=== PATIENT | male | born 1960 | race African-American/Black ===

== ENCOUNTER 2016-07-10 17:49 | Inpatient (IN) | payer OTHER ==
--- NOTE | ~2016-07-10 | PN ---
Unit #: [id number] #: [id number] Patient: JEY SMITH [id number] [facility] [address] [place] [address] [id number] MR#: [id number] NAME: JEY SMITH ROOM: [facility] Age: 56 Sex: M Admission Date: 07/10/2016 : 1960 Attending Physician: Lilly Gregorio M.D. Admitting Physician: Lilly Gregorio M.D. Primary Care Physician: Anthony THOMSON PROGRESS NOTES DATE 07/13/2016 DISCUSSION Mr. Jey Smith is a 56-year-old, male with mood disorder who was seen today and chart was reviewed and case was discussed with the staff. He has been anxious, withdrawn and rather seclusive to himself. Meanwhile, he has been cooperative with treatment recommendations. He has been taking the medication and tolerating them fairly well with no reported side effects. MENTAL STATUS EXAM Middle-aged male who was casually dressed with fair personal hygiene, appears to be in no acute distress or discomfort. He was awake and alert on interaction with intact orientation. His mood was anxious with congruent affect. He denies any suicidal or homicidal ideation. His insight and judgement remains slightly impaired. TREATMENT PLAN 1. We will continue him on his current medications and treatment protocol. We will monitor his response to the medication and make further adjustments as needed. 2. We will continue to follow up. Dictated by... Jj Huitron/lety TD: 07/16/2016 21:23 JOB #: [id number] Unit #: [id number] #: [id number] Patient: JEY SMITH PROGRESS NOTES Page 1 of 1 X Lilly Gregorio MD PROGRESS NOTE
--- NOTE | ~2016-07-10 | A ---
[facility] Nutrition Therapy DATE: 07/21/16 Patient: JEY TRUJILLO Physician: AFF Address: HOMELESS NO PERMANENT ADDRESS Room/Bed: [address], Zip: [place] [address] Admit Date: 07/10/16 Date of : 56 Height: 5 9 Weight: 232 [phone] NUTRITIONAL ASSESSMENT: REASON: LENGTH OF STAY PATIENT ADMITTED FOR DEPRESSION, SI PMH: HTN, OBESITY Anthropometrics: HT: 5'9", WT: 233, BMI: 34.4 Labs: 07/11/16- GLU: 130 Meds: SEROQUEL, TRAZODONE, ZOLOFT Assessment: CHART REVIEWED, EVENTS NOTED. PATIENT IS A 56 Y/O MALE ADMITTED FOR DEPRESSION AND SI. PATIENT IS CURRENTLY UNEMPLOYED, HOMELESS, HAS A HX OF ETOH ABUSE, AND DENIES ANY CURRENT SUBSTANCE USE. PATIENT HAS A HX OF INPATIENT PSYCH HOSPITALIZATION. PER NEEDS ASSESSMENT, PATIENT STATED A FAIR APPETITE WITH A 10# WEIGHT LOSS OVER LAST SEVERAL MONTHS AND HE HAD NOT BEEN SLEEPING. NURSING REPORTS CONSISTENTLY GOOD PO INTAKES. CURRENT PSYCH MEDS MAY CAUSE WEIGHT AND APPETITE FLUCTUATIONS. THERE ARE NO SKIN OR GI ISSUES NOTED ATT. PATIENT IS ON A REGULAR DIET. Dx: NO NUTRITION DX Intervention: REGULAR DIET, MEDS PER MD, PSYCH Monitoring, Evaluation and Goals: 1. ADEQUATE PO INTAKES >50% OF MEALS 2. PREVENT, CORRECT MICRO/MACRO NUTRIENT DEFICIENCIES MONITOR: WEIGHTS, LABS, PO/FLUID INTAKES Recommendations: 1. CONTINUE REGULAR DIET TOLERATED 2. ENCOURAGE ADEQUATE PO AND FLUID INTAKES RD TO F/U PER PROTOCOL AND PRN R/T PATIENT NOT AT NUTRITIONAL RISK ATT Respectfully, [facility] Nutrition Therapy DATE: 07/21/16 Patient: JEY TRUJILLO Physician: JUVENTINOF Address: HOMELESS NO PERMANENT ADDRESS Room/Bed: [address], Zip: [place] [address] Admit Date: 07/10/16 Date of : 56 Height: 5 9 Weight: 232 [phone] NADIA MURRAY, RD, LD [facility] cc: client file
--- NOTE | ~2016-07-10 | HP ---
Unit #: [id number] #: [id number] Patient: JEY TRUJILLO [id number] [place] [address] [id number] MR#: [id number] NAME: JEY TRUJILLO ROOM: P254 Age: 56 Sex: M Admission Date: 07/10/2016 : 1960 Attending Physician: Lilly Gregorio M.D. Admitting Physician: Lilly Gregorio M.D. Primary Care Physician: Anthony Vogel HISTORY AND PHYSICAL HISTORY OF PRESENT ILLNESS Jey is a 56 year old admitted to [address] [place] [address] with depression and verbalizing wanting to hurt himself. PAST MEDICAL HISTORY 1. Obesity. 2. High blood pressure. PAST SURGICAL HISTORY 1. Bilateral knees. 2. Right shoulder. ALLERGIES Penicillin. SOCIAL HISTORY He denies cigarettes, alcohol and illicit drug use. FAMILY HISTORY Medically noncontributory. REVIEW OF SYSTEMS CONSTITUTIONAL: No fever or chills. HEENT: Denies any sore throat, ear pain or runny nose. CARDIOVASCULAR: Denies chest pain, irregular heart rhythm or palpitations. CHEST: Denies shortness of breath or cough. No hemoptysis. GASTROINTESTINAL: Denies nausea, vomiting, diarrhea or chronic constipation. ENDOCRINE: Denies history of increased thirst or urination. No recent significant weight loss or gain. GENITOURINARY: Denies dysuria, frequency, or hematuria. SKIN: Denies any rashes. HEMATOLOGIC: Denies history of increased bleeding or bruising. MUSCULOSKELETAL: Denies any hot, swollen joints. No generalized muscle pain. NEUROLOGIC: Denies problems with vision or speech. No frequent, severe headaches. No numbness, tingling or weakness in any extremities. Denies loss of bladder or bowel control. CURRENT MEDICATIONS 1. Zoloft 100 mg daily. 2. Milk of Magnesia p.r.n. 3. Maalox p.r.n. Unit #: [id number] #: [id number] Patient: JEY TRUJILLO 4. Tylenol p.r.n. 5. Ambien 10 mg q.h.s. 6. Lotensin 40 mg daily. 7. Norvasc 10 mg daily. PHYSICAL EXAMINATION GENERAL: Alert, obese, in no apparent distress. VITAL SIGNS: Blood pressure 174/100, heart rate 80, respirations 16, temperature 98.6. WEIGHT: 233. HEIGHT: 5 feet 9 inches. SKIN: Warm and dry without rash or lesion. HEENT: Normocephalic. TMs not viewed. Oral and nasal passages clear. Conjunctivae clear. PERRLA. EOMs intact. NECK: Supple without lymphadenopathy or thyromegaly. HEART: Regular rate and rhythm without murmur. LUNGS: Clear. ABDOMEN: Soft, nontender. : Not done. EXTREMITIES: No evidence of cyanosis, clubbing or edema. Moves all without focal deficit. NEUROLOGICAL: Grossly within normal limits. Cranial Nerves: II: Visual chung are intact. III, IV AND : Extraocular movements are intact. Pupils are equal, round and reactive to light. V: Facial sensation is grossly normal. VII: Facial movements and expression are normal. VIII: Auditory acuity grossly intact. IX, X: Uvula is midline. Phonation is normal. XI: Patient shrugs shoulders and turns head normally. XII: Tongue protrudes in the midline. Sensory and Motor Function: Sensory and motor sensation is grossly normal. Motor: moves all extremities well. Coordination: Gait is normal. Deep Tendon Reflexes: Intact. IMPRESSION Psychiatric admission. RECOMMENDATIONS PSYCHIATRIC: Per psychiatrist. MEDICAL: See no contraindications to participate in facility's activities. MEDICAL PROGNOSIS Good. MEDICAL CONDITION Stable. Dictated by... Kusum Jones P.A.-C. for Jj Francis/mir TD: 07/11/2016 16:17 JOB #: [id number] Unit #: [id number] #: [id number] Patient: JEY TRUJILLO HISTORY AND PHYSICAL Page 1 of 1 X Kusum Jones HISTORY AND PHYSICAL
--- NOTE | ~2016-07-10 | DS ---
Unit #: [id number] #: [id number] Patient: JEY SMITH [id number] [facility] [place] [address] [id number] I MR#: [id number] NAME: JEY SMITH [facility]OM: [facility] Age: 56 Sex: M Admission Date: 07/10/2016 : 1960 Discharge Date: Attending Physician: Lilly Gregorio M.D. Primary Care Physician: Anthony Vogel DISCHARGE SUMMARY IDENTIFYING DATA Mr. Smith is a 56-year-old single male, who is a resident of [place], [place] and was self-referred to the hospital on a voluntary basis. DISCHARGE DIAGNOSES Psychiatric: Major depressive disorder, recurrent, moderate, without psychotic features. Medical: Hypertension. Stressors: Moderate psychosocial stressors. HISTORY OF PRESENT ILLNESS Please see initial psychiatric evaluation for details. PAST PSYCHIATRIC HISTORY Please see initial psychiatric evaluation for details. PAST MEDICAL HISTORY Please see initial psychiatric evaluation for details. HOSPITAL COURSE The patient was admitted to the adult psychiatric unit at [facility] and was oriented to the hospital environment. Routine p.r.n. medications were initiated, and he was started back on his home medication, and Zoloft and Seroquel were initiated to help with depression and he was closely monitored. He was seen to be anxious, withdrawn, exhibiting some significant symptoms of depression and was very seclusive to himself and was not interacting or socializing very much. He was polite and pleasant and cooperative with treatment recommendation and was not showing any agitation or aggression, and though he was taking the medications, he was not really showing a therapeutic response and as such, medications were gradually titrated up and Zoloft was increased to 200 mg and Seroquel was increased to 300 mg and he started showing therapeutic response, and as such, it was decided that he will be discharged home and will continue treatment on an outpatient basis. DISCHARGE MEDICATIONS Lotensin 40 mg a day for hypertension, Zoloft 200 mg a day for depression, Seroquel 300 mg at bedtime for depression. DISCHARGE CONDITION Stable. PROGNOSIS Unit #: [id number] #: [id number] Patient: JEY SMITH. Dictated by... Lilly Gregorio M.D. IAA/modl TD: 07/24/2016 07:14 JOB #: [id number] DISCHARGE SUMMARY Page 1 of 1 X Lilly Gregorio MD DISCHARGE SUMMARY
--- NOTE | ~2016-07-10 | PN ---
Unit #: [id number] #: [id number] Patient: JEY SMITH [id number] [facility] [address] [place] [address] [id number] MR#: [id number] NAME: JEY SMITH ROOM: P254 Age: 56 Sex: M Admission Date: 07/10/2016 : 1960 Attending Physician: Lilly Gregorio M.D. Admitting Physician: Lilly Gregorio M.D. Primary Care Physician: Anthony THOMSON PROGRESS NOTES DATE OF SERVICE: 07/17/2016 SUBJECTIVE Mr. Smith is a 56-year-old male, who was seen today and chart was reviewed, and case was discussed with the staff. He has been anxious, withdrawn, though has not shown any agitation, irritability, or behavioral problems, and has been cooperative with treatment recommendations, though has been reported persistent depressive symptoms . MENTAL STATUS EXAMINATION Middle-aged male, who was casually dressed with fair personal hygiene, appears to be in no acute distress or discomfort. He was awake and alert on interaction with intact orientation. His mood was anxious and depressed with a congruent affect. His speech was . TREATMENT PLAN 1. We will continue him on his current medications and treatment protocol. We will monitor his response to the medications and make further adjustments as needed. 2. We will continue to follow up. Dictated by... Jj Huitron/joaquín TD: 07/18/2016 01:54 JOB #: [id number] [facility] PROGRESS NOTES Page 1 of 1 X Lilly Gregorio MD PROGRESS NOTE
--- NOTE | ~2016-07-10 | PN ---
Unit #: [id number] #: [id number] Patient: JEY SMITH [id number] [facility] [address] [place] [address] [id number] I MR#: [id number] NAME: JEY SMITH ROOM: P254 Age: 56 Sex: M Admission Date: 07/10/2016 : 1960 Attending Physician: Lilly Gregorio M.D. Admitting Physician: Lilly Gregorio M.D. Primary Care Physician: Anthony THOMSON PROGRESS NOTES DATE July 20, 2016 DISCUSSION Mr. Smith is a 56-year-old male, who was seen today and chart was reviewed and the case was discussed with the staff. He was lying in his bed and reports and reporting that he has been up all night long and anxious and depressed, and still having suicidal thoughts. Meanwhile, he has been taking the medications and tolerating them fairly well but has not shown been able to show any therapeutic response. MENTAL STATUS EXAMINATION Middle-aged male, who was casually dressed with fair personal hygiene and appears to be in no acute distress or discomfort. He was awake and alert on interaction with intact orientation. His mood is anxious with a congruent affect. He reports having suicidal ideation but denies any homicidal ideation. His insight and judgment remain slightly impaired. TREATMENT PLAN We will continue him on his current medications and treatment protocol, and will monitor his response, and make further adjustments as needed. We will be maintaining Zoloft at 200 mg a day, and increase the Seroquel to 300 mg at bedtime. Dictated by... Jj Huitron/phuc TD: 07/21/2016 05:00 JOB #: [id number] Unit #: [id number] #: [id number] Patient: JEY SMITH PROGRESS NOTES Page 1 of 1 X Lilly Gregorio MD PROGRESS NOTE
--- NOTE | ~2016-07-10 | PN ---
Unit #: [id number] #: [id number] Patient: JEY SMITH [id number] [facility] [address] [place] [address] [id number] I MR#: [id number] NAME: JEY SMITH ROOM: P254 Age: 56 Sex: M Admission Date: 07/10/2016 : 1960 Attending Physician: Lilly Gregorio M.D. Admitting Physician: Lilly Gregorio M.D. Primary Care Physician: Anthony THOMSON PROGRESS NOTES DATE 07/21/2016 DISCUSSION Mr. Smith is a 56-year-old male who was seen today and chart was reviewed and case was discussed with the staff. He remains anxious, withdrawn and rather seclusive to himself. Meanwhile, he has been cooperative with treatment recommendations and has been taking medications and tolerating them fairly well with no reported side effects. MENTAL STATUS EXAMINATION Middle-aged male who was casually dressed with fair personal hygiene and appears to be in no acute distress or discomfort. He was awake and alert on interaction with intact orientation. His mood was anxious and depressed with congruent affect. His speech is slow and goal-directed. He denies any suicidal or homicidal ideation and also denies any auditory or visual hallucinations. His insight and judgement remains slightly impaired. TREATMENT PLAN 1. Will continue on his current medications and treatment protocol. Will monitor response to the medications and make further adjustments as needed. 2. Will continue to follow up. Dictated by... Jj Huitron/mir TD: 07/21/2016 21:20 JOB #: [id number] Unit #: [id number] #: [id number] Patient: JEY SMITH PROGRESS NOTES Page 1 of 1 X Lilly Gregorio MD PROGRESS NOTE
--- NOTE | ~2016-07-10 | PA ---
Unit #: [id number] #: [id number] [facility] [id number] [facility] [address] [place] [address] [id number] I MR#: [id number] NAME: JEY SMITH ROOM: P254 Age: 56 Sex: M Admission Date: 07/10/2016 : 1960 Date of Assessment: 07/10/2016 Attending Physician: Lilly Gregorio M.D. Admitting Physician: Lilly Gregorio M.D. Primary Care Physician: Anthony Vogel PSYCHIATRIC ASSESSMENT IDENTIFYING DATA Mr. Smith is a 56-year-old, single, male, who is a resident of [place], [place], was self-referred to the hospital on a voluntary basis. CHIEF COMPLAINT "Because I'm depressed and suicidal." HISTORY OF PRESENT ILLNESS Mr. Smith is a 56-year-old male, who was self-referred to the hospital today and he came today because he is depressed and suicidal and that he has been feeling this way for a few months and if he left here today, he would not be safe and reports that he has medications for depression that he tries to take on daily basis and reports increasing depression, anxiety, depressed sleep and appetite, poor energy level, psychomotor retardation, feelings of hopelessness and helplessness, and suicidal ideation. SUBSTANCE ABUSE HISTORY The patient reports history of alcohol abuse in the past, but denies any current abuse and reports that he has not had any in the last 2 years. PAST PSYCHIATRIC HISTORY The patient has had a [facility] at [facility] and has been diagnosed and treated for mood disorder. Review of the medical records indicate that he is currently supposed to be on Zoloft and Seroquel, though it is not clear if he has been compliant with the medications and does not appear to be showing a therapeutic response to the medications. PAST MEDICAL HISTORY The patient's medical history is significant for hypertension. ALLERGIES Penicillin. PERSONAL AND SOCIAL HISTORY A 56-year-old male, who reports that he is single, unemployed, and homeless and has poor social support system. MENTAL STATUS EXAMINATION Middle-aged male, who was casually dressed with fair Unit #: [id number] #: [id number] Patient: JEY SMITH personal hygiene, appears to be in no acute distress or discomfort. He was awake and alert on interaction with intact orientation to time, place, and person. His mood was anxious and depressed with a congruent affect. His speech was slow and goal directed. His thought processes were disorganized with some looseness of associations and suicidal ideations. His insight and judgment remain significantly impaired. DIAGNOSTIC IMPRESSION Psychiatric: Major depressive disorder, recurrent, moderate, without psychotic features. Medical: Hypertension. Stressors: Moderate psychosocial stressors. TREATMENT PLAN 1. The patient has presented with a history of substance abuse and mood disorder, and has been decompensating and will need inpatient hospitalization for detoxification, safety, and stabilization. We will start him back on his home medications. We will adjust the medications and monitor response. 2. Supportive therapy was provided to the patient. 3. Safe, structured, and nourishing environment will be provided. ESTIMATED LENGTH OF STAY 5 to 7 days. ABILITY TO HELP SELF Limited. WILLINGNESS TO HELP SELF The patient appears to be willing to help self. STRENGTHS 1. Communicative. 2. Cooperative. PROBLEMS 1. Chronic dysphoric symptoms. 2. Chronic chemical dependency. 3. Poor social support system. DISCHARGE CRITERIA This will be contingent upon the patient's ability to show resolution of his depression and anxiety, and his ability to stay safe to himself, particularly after discharge from the hospital. Dictated by... Jj Huitron/joaquín TD: 07/11/2016 07:10 JOB #: [id number] Unit #: [id number] #: [id number] Patient: JEY SMITH PSYCHIATRIC ASSESSMENT Page 1 of 1 X Lilly Gregorio MD PSYCHIATRIC ASSESSMENT
--- NOTE | ~2016-07-10 | PN ---
Unit #: [id number] #: [id number] Patient: JEY SMITH [id number] [facility] [address] [place] [address] [id number] MR#: [id number] NAME: JEY SMITH ROOM: [facility] Age: 56 Sex: M Admission Date: 07/10/2016 : 1960 Attending Physician: Lilly Gregorio M.D. Admitting Physician: Lilly Gregorio M.D. Primary Care Physician: Anthony THOMSON PROGRESS NOTES DATE 07/15/2016 DISCUSSION Jey Smith is a 56-year-old male reported still having suicidal ideation, trouble sleeping, sad depressed feeling of hopelessness, worthlessness. The patient's vital signs 98.3, 79, 159/96. The patient denied any other complaints. Complete review of systems unremarkable. MENTAL STATUS EXAMINATION General appearance, the patient dressed casually in hospital attire. Attention span and concentration poor. Oriented to time, place and person. Mood and affect was sad, dysphoric, flat. Speech monotone. Thought process concrete. The patient denied any thoughts of harming others but having suicidal ideation, hopelessness, worthlessness. Recent and remote memory poor. Insight and judgement poor. DIAGNOSES Mood disorder NOS ASSESSMENT/PLAN Advise at this time to continue with current medication and therapeutic protocol. If needed consider further adjustment of medication. Advise trazodone 75 mg at bedtime for sleep. Dictated by... Jj Dill/lety TD: 07/18/2016 03:49 JOB #: [id number] Unit #: [id number] #: [id number] Patient: JEY SMITH PROGRESS NOTES Page 1 of 1 X Godfrey Burris MD PROGRESS NOTE
--- NOTE | ~2016-07-10 | PN ---
Unit #: [id number] #: [id number] Patient: JEY SMITH [id number] [facility] [address] [place] [address] [id number] MR#: [id number] NAME: JEY SMITH ROOM: [facility] Age: 56 Sex: M Admission Date: 07/10/2016 : 1960 Attending Physician: Lilly Gregorio M.D. Admitting Physician: Lilly Gregorio M.D. Primary Care Physician: Anthony JEFFRIES NOTES DATE OF SERVICE 07/19/2016 DISCUSSION Mr. Smith is a 56-year-old male who was seen today. Chart was reviewed and case was discussed with the staff. He remains anxious, withdrawn, depressed, and rather seclusive to himself. Meanwhile, he has been cooperative with the treatment recommendations and has been taking the medications and tolerating them fairly well with no reported side effects. MENTAL STATUS EXAMINATION Middle-aged male who is casually dressed with fair personal hygiene, appears to be in no acute distress or discomfort. He was awake and alert on interaction with intact orientation. His mood is anxious and depressed with congruent affect. Speech is slow and restricted in content. He reports having suicidal ideations but denies any homicidal ideation. His insight and judgment remain slightly impaired. TREATMENT PLAN 1. We will continue him on his current medications and treatment protocol. We will monitor his response to the medications and make further adjustments as needed. 2. We will continue to follow up. Dictated by... Jj Huitron/josephine TD: 07/20/2016 07:21 JOB #: [id number] Unit #: [id number] #: [id number] Patient: JEY SMITH PROGRESS NOTES Page 1 of 1 X Lilly Gregorio MD PROGRESS NOTE
--- NOTE | ~2016-07-10 | PN ---
Unit #: [id number] #: [id number] Patient: JEY SMITH [id number] [facility] [address] [place] [address] [id number] I MR#: [id number] NAME: JEY SMITH ROOM: P254 Age: 56 Sex: M Admission Date: 07/10/2016 : 1960 Attending Physician: Lilly Gregorio M.D. Admitting Physician: Lilly Gregorio M.D. Primary Care Physician: Anthony THOMSON PROGRESS NOTES DATE July 12, 2016 DISCUSSION Mr. Smith was seen today and chart was reviewed. His case was discussed with the staff. He has been anxious, withdrawn, and rather seclusive to himself. Meanwhile, he has been exhibiting significant depressive symptoms and has been very seclusive to himself (1) minimal interaction. He has been, however, taking medications and tolerating them fairly well with no reported side effects. MENTAL STATUS EXAMINATION Middle age, -Indian male who was casually dressed with a fair personal hygiene and appears to be in no acute distress or discomfort. He was awake and alert on interaction with intact orientation. His mood is anxious with a congruent affect. Speech is slow and restricted in content. His thought processes are disorganized with some looseness of association and suicidal ideation. His insight and judgement remain significantly impaired. TREATMENT PLAN 1. Continue on his current treatment protocol. Will monitor his response to the medications and make further adjustments as needed. 2. Will continue to follow up. Dictated by... Jj Huitron/renee TD: 07/14/2016 08:15 JOB #: [id number] Unit #: [id number] #: [id number] Patient: JEY SMIHT PROGRESS NOTES Page 1 of 1 X Lilly Gregorio MD PROGRESS NOTE
--- NOTE | ~2016-07-10 | PN ---
Unit #: [id number] #: [id number] Patient: JEY SMITH [id number] [facility] [address] [place] [address] [id number] I MR#: [id number] NAME: JEY SMITH ROOM: P254 Age: 56 Sex: M Admission Date: 07/10/2016 : 1960 Attending Physician: Lilly Gregorio M.D. Admitting Physician: Lilly Gregorio M.D. Primary Care Physician: Anthony JEFFRIES NOTES DATE OF SERVICE: 07/18/2016 SUBJECTIVE Mr. Smith is a 56-year-old male with mood disorder, who was seen today and chart was reviewed, and case was discussed with the staff. He has been anxious, withdrawn, depressed, and rather seclusive to himself, though he has been cooperative with treatment recommendations and taking the medications and tolerating them fairly well with no reported side effects. MENTAL STATUS EXAMINATION Middle-aged male, who was casually dressed with fair personal hygiene, appears to be in no acute distress or discomfort. He was awake and alert on interaction with intact orientation. His mood was anxious and depressed with a congruent affect. His speech was slow and restricted in content. His thought processes were disorganized with looseness of association and suicidal ideations. His insight and judgment remain significantly impaired. TREATMENT PLAN 1. We will continue his current medications and treatment protocol. We will monitor his response to medications and make further adjustments as needed. 2. We will continue to follow up. Dictated by... Jj Huitron/joaquín TD: 07/18/2016 23:55 JOB #: [id number] Unit #: [id number] #: [id number] Patient: JEY SMITH PROGRESS NOTES Page 1 of 1 X Lilly Gregorio MD PROGRESS NOTE
--- NOTE | ~2016-07-10 | PN ---
Unit #: [id number] #: [id number] Patient: JEY SMITH [id number] [facility] [address] [place] [address] [id number] MR#: [id number] NAME: JEY SMITH ROOM: P254 Age: 56 Sex: M Admission Date: 07/10/2016 : 1960 Attending Physician: Lilly Gregorio M.D. Admitting Physician: Lilly Gregorio M.D. Primary Care Physician: Anthony JEFFRIES NOTES DATE OF SERVICE: 07/14/2016 SUBJECTIVE Mr. Smith is a 56-year-old male, who was seen today and chart was reviewed and the case was discussed with the staff. He has been anxious, withdrawn, depressed, and rather seclusive to himself and reports not feeling good and reports that his depression is not getting any better and also reports some persistent suicidal thoughts and lack of sleep. Meanwhile, he has been coming to therapy groups and has been participating. MENTAL STATUS EXAMINATION Middle-aged male, who was casually dressed with a fair personal hygiene and appears to be in no acute distress or discomfort. He was awake and alert on interaction with intact orientation. His mood was anxious and depressed with a congruent affect. He reports having suicidal ideations, but denies any homicidal ideations. His insight and judgment remain significantly impaired. TREATMENT PLAN 1. We will adjust his psychotropic medications and increase his Seroquel to 200 mg at bedtime and we will also increase his Zoloft to 200 mg a day and we will monitor his response to the medications and make further adjustments as needed. 2. We will continue to follow up. Dictated by... Jj Huitron/joaquín TD: 07/14/2016 19:06 JOB #: [id number] Unit #: [id number] #: [id number] Patient: JEY SMITH PROGRESS NOTES Page 1 of 1 X Lilly Gregorio MD PROGRESS NOTE
--- NOTE | ~2016-07-10 | PN ---
Unit #: [id number] #: [id number] Patient: JEY SMITH [id number] [facility] [address] [place] [address] [id number] MR#: [id number] NAME: JEY SMITH ROOM: [facility] Age: 56 Sex: M Admission Date: 07/10/2016 : 1960 Attending Physician: Lilly Gregorio M.D. Admitting Physician: Lilly Gregorio M.D. Primary Care Physician: Anthony THOMSON PROGRESS NOTES DATE 07/16/2016 DISCUSSION Mr. Jey Smith is a 56-year-old male seen on 07/16/2016. The patient reported feeling better sleeping good decrease in anxiety. The patient was pleasant and cooperative during interview able to answer questions appropriately. The patient was admitted with depressive disorder. Complete review of systems unremarkable. MENTAL STATUS EXAMINATION General appearance, the patient dressed casually. Attention span and concentration fair. Oriented to place and person. Mood and affect was sad, dysphoric. Speech monotone. Thought process concrete. The patient denied any thoughts of harming self or others or any psychotic symptoms. Recent and remote memory poor. Insight and judgement poor. DIAGNOSES Major depressive disorder recurrent. ASSESSMENT/PLAN Advise to continue with current medication and therapeutic protocol. If needed consider further adjustment of medication. Dictated by... Jj Dill/lety TD: 07/19/2016 03:32 JOB #: [id number] Unit #: [id number] #: [id number] Patient: JEY SMITH PROGRESS NOTES Page 1 of 1 X Godfrey Burris MD X PROGRESS NOTE
--- NOTE | ~2016-07-10 | PN ---
Unit #: [id number] #: [id number] Patient: JEY SMITH [id number] [facility] [address] [place] [address] [id number] MR#: [id number] NAME: JEY SMITH ROOM: P254 Age: 56 Sex: M Admission Date: 07/10/2016 : 1960 Attending Physician: Lilly Gregorio M.D. Admitting Physician: Lilly Gregorio M.D. Primary Care Physician: Anthony THOMSON PROGRESS NOTES DATE 07/22/2016 DISCUSSION Mr. Smith is a 56-year-old, male who was seen today and chart was reviewed and case was discussed with the staff. He has been anxious, withdrawn and rather seclusive to himself. Meanwhile, he has been cooperative with treatment recommendations and has been taking medications and tolerating them fairly well with no reported side effects. MENTAL STATUS EXAM Middle-aged male who was casually dressed with fair personal hygiene, appears to be in no acute distress or discomfort. He was awake and alert with impaired attention and concentration. His mood is anxious with congruent affect. He denies any suicidal or homicidal ideation. His insight and judgement remains slightly impaired. TREATMENT PLAN 1. We will continue him on his current medications and treatment protocol. We will monitor to medication and make further adjustments as needed. 2. We will continue to follow up. Dictated by... Jj Huitron/lety TD: 07/24/2016 01:02 JOB #: [id number] Unit #: [id number] #: [id number] Patient: JEY SMITH PROGRESS NOTES Page 1 of 1 X Lilly Gregorio MD X PROGRESS NOTE
[2016-07-11 12:40] LABS: BASOPHIL% 0.5 % (0-2.5); EOSINOPHIL# 0.1 X10e3 (0-0.7); EOSINOPHIL% 2.5 % (0.0-7.0); HEMATOCRIT 45.5 % (38.0-50.0); HEMOGLOBIN 15.1 gm/dL (13.0-16.0); LYMPHOCYTE# 1.5 X10e3 (1.0-3.5); LYMPHOCYTE% 29.1 % (17.0-45.0); MEAN CELL VOLUME 90.8 FL (83-96); MEAN CORPUSCULAR HEMOGLOBIN 30.1 PG (28-34); MEAN CORPUSCULAR HGB CONC 33.1 g/dL (30-36); MEAN PLATELET VOLUME 8.8 FL (6.5-11.5); MONOCYTE# 0.6 X10e3 (0-1.0); MONOCYTE% 11.8 % (3.0-12.0); NEUTROPHIL# 2.8 X10e3 (1.5-7.1); NEUTROPHIL% 56.1 % (40-75); PLATELET COUNT 211 X10e3 (140-420); RED BLOOD COUNT 5.01 X10e (3.90-5.60); RED CELL DISTRIBUTION WIDTH 14.3 % (11.0-15.5); WHITE BLOOD COUNT 5.1 X10e3 (4.0-10.5)
[2016-07-11 12:44] LABS: DIFF IND NO
[2016-07-11 13:01] LABS: ALBUMIN SERUM 3.7 g/dL (3.5-5.0); BILIRUBIN,TOTAL 0.6 mg/dL (0.2-2.0); BUN/CREATININE RATIO 13.63; CALCIUM SERUM 8.9 mg/dL (8.4-10.2); CREATININE SERUM 1.1 mg/dL (0.6-1.4); GLOM FILT RATE Estimated 85.3 mL/min (>60); POTASSIUM 4.1 mmol/L (3.5-5.1); PROTEIN TOTAL SERUM 6.7 g/dL (6.0-8.3)
[2016-07-11 13:03] LABS: THYROID STIMULATING HORMONE 1.75 uIU/ml (0.34-5.60)
[2016-07-11 13:10] LABS: FREE THYROXIN (T4) 0.74 ng/dL (0.58-1.64)
[2016-07-14 10:08] LABS: URINE APPEARANCE CLOUDY; URINE BILIRUBIN NEG (NEG); URINE BLOOD NEG (NEG); URINE COLOR YELLOW; URINE GLUCOSE NEG (NEG); URINE KETONE NEG (NEG); URINE LEUKOCYTE ESTERASE NEG (NEG); URINE NITRATE NEG (NEG); URINE PH 5.5 (5-8); URINE PROTEIN NEG (NEG); URINE UROBILINOGEN 0.2 MG/DL (NEG)
[2016-07-14 10:22] LABS: AMPHETAMINE NEG (NEG); BARBITURATES NEG (NEG); BENZODIAZEPINES NEG (NEG); COCAINE NEG (NEG); MARIJUANA NEG (NEG); OPIATES NEG (NEG); TRICYCLIC ANTIDEPRESSANTS POS (NEG); U METHADONE NEG (NEG)
== END 2016-07-24 10:45 | DRG 885 ==
LOC: P2L 17:49
PROVIDERS: Psychiatry & Neurology Psychiatry
DX: F33.1 Major depressive disorder, recurrent, moderate (principal); R45.851 Suicidal ideations; I10 Essential (primary) hypertension; Z88.0 Allergy status to penicillin; Z56.0 Unemployment, unspecified
CPT/HCPCS: 80053; 80307; 81003; 84439; 84443; 85025